=== PATIENT | female | born 2005 ===

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

== ENCOUNTER 2024-02-22 18:00 | Outpatient (REF) | payer MEDICAID, SELFPAY ==
[2024-02-22 20:51] LABS: ESR 6 mm/hr (0-20)
[2024-02-22 21:27] LABS: C-Reactive Protein < 0.50 mg/dL (<or=0.5)
[2024-02-23 17:47] LABS: Rheumatoid Factor <8.6 IU/mL (<12.0)
[2024-02-26 10:49] LABS: Lyme Ab w Rflx to Lyme Confirm Negative (Negative)
[2024-02-26 13:51] LABS: ANA Interpretation Negative (Negative)
== END 2024-02-22 18:01 | disposition home or self-care (01) ==
LOC: LBN 18:00
PROVIDERS: Visit Provider Physician Assistant Medical
DX: M25.69 Stiffness of other specified joint, not elsewhere classified (principal)
CPT/HCPCS: 85652; 86038; 86140; 86431; 86618